=== PATIENT | male | born 1930 | race Caucasian/White ===

== ENCOUNTER 2017-08-09 09:49 | Outpatient (CLI) | payer MEDICARE, BC ==
--- NOTE | 2017-08-09 12:25 | RAD ---
THREE VIEWS RIGHT WRIST: History: Wrist pain for two months. M25.531 FINDINGS: AP, lateral, and oblique views obtained. There is joint space narrowing in the articulation of the scaphoid and trapezium. Subchondral cysts and sclerotic changes seen. There is also joint space narrowing and sclerosis in the first carpal me tacarpal joint. No evidence of acute fracture seen. No other significant bony lesions noted. IMPRESSION: Osteoarthritis, carpal and metacarpal joints. POS: ELVIN
== END 2017-08-09 09:50 | disposition home or self-care (01) ==
LOC: SCSRAD 09:49
PROVIDERS: ATTEND Family Medicine
DX: M25.531 Pain in right wrist (principal); M19.041 Primary osteoarthritis, right hand
CPT/HCPCS: 36415; 84550

== ENCOUNTER 2018-06-07 11:07 | Outpatient (CLI) | payer MEDICARE, BC ==
--- NOTE | 2018-06-07 14:04 | RAD ---
LUMBAR SPINE THREE VIEWS: History: 88-year-old male with history of spinal stenosis, chronic back pain. FINDINGS: Severe multilevel disc osteophytosis with moderate dextroscoliosis of the mid lumbar vertebral column . These changes have progressed when compared to prior exam, 02-05-08. No evidence for acute compressi on fracture. IMPRESSION: Worsening lumbar spondylosis and scoliosis. No acute fracture or focal bone lesion. POS: OFF
== END 2018-06-07 11:08 | disposition home or self-care (01) ==
LOC: SCSRAD 11:07
PROVIDERS: ATTEND Family Medicine
DX: M48.061 Spinal stenosis, lumbar region without neurogenic claudication (principal); M47.896 Other spondylosis, lumbar region; M41.9 Scoliosis, unspecified; R29.890 Loss of height
CPT/HCPCS: 72100

== ENCOUNTER 2018-06-27 07:39 | Outpatient (CLI) | payer MEDICARE, BC ==
--- NOTE | 2018-06-27 11:24 | MRI ---
MRI LUMBAR SPINE NONCONTRAST: DATE: 06-27-18 HISTORY: 88-year-old male with low back pain and bilateral lumbar radiculopathy. COMPARISON: 06-27-18 FINDINGS: For the purposes of this report, it will be assumed that there are five lumbar type vertebrae. There is severe degenerative disc disease at every level, including severe and moderate-severe disc space n arrowing at all levels. One exception is complete obliteration of disc space due to ankylosis of the endplates at L1-2. There are large diffuse disc bulge/osteophytic bar complexes at all levels. There is S-shaped lateral curvature. 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 There are flowing bridging anterior osteophytes, protruding into the prevertebral space, from T11-12 throu gh L2-3, consistent with DISH. No high grade vertebral body collapse. The S-shaped lateral curvature results in asymmetric distribution of the severe degenerative disc disease and severe degenerative fa cet disease. T11-12: No central stenosis. No high grade neural foraminal stenosis. T12-L1: No central stenosis and no neural foraminal stenosis. L1-2: Complete ankylosis of the endplates across the now obliterated disc space is a change compared to the previous MRI of 2007, when the ankylosis was partial, only on the right side. Again noted is t he prominent degenerative retrolisthesis of L1 on L2 with broad endplate osteophytic bar indenting th e ventral aspect of the thecal sac, abutting and mildly displacing the cauda equina nerve roots. The conus medullaris terminates at the lower L1 level. Despite these changes, there is no significant javid tral spinal canal stenosis. Moderate to severe right neural foraminal stenosis. Severe left neural fo raminal stenosis. Degenerative facet changes are mild to moderate. L2-3: Prominent degenerative retrolisthesis of L2 on L3. Prominent diffuse disc bulge/osteophytic bar complex indents the ventral aspect of the thecal sac. No high grade central spinal canal stenosis. P osterior epidural fat pad. Mild thecal sac stenosis. The cauda equina is clumped centrally. This is p robably due to the high grade central spinal canal stenosis at lower levels rather than chronic arach noiditis. Moderate right neural foraminal stenosis. Severe left neural foraminal stenosis. Moderate t o severe left degenerative facet changes. Mild to moderate right neural foraminal stenosis. L3-4: Degenerative retrolisthesis of L3 on L4. Diffuse disc bulge/osteophytic bar complex indents the ventral aspect of the thecal sac. Moderate to severe bilateral degenerative facet hypertrophy. Signi ficant decreased transverse diameter of the spinal canal, but not the AP dimension. Overall degree of central spinal canal stenosis is moderate. Posterior epidural fat pad results in additional stenosis of the thecal sac. Degree of thecal sac stenosis is moderate to severe, with crowding of cauda equin a. Degree of central spinal canal stenosis is similar to that of the 2008 MRI. Moderate right neural foraminal stenosis. Moderate to severe left neural foraminal stenosis. L4-5: Mild degenerative retrolisthesis of L4 on L5. The diffuse disc bulge/osteophytic bar complex is mildly larger now compared to previous study. Severe right degenerative facet changes and moderate l eft degenerative facet changes. Moderate to severe right neural foraminal stenosis. Moderate left magen ral foraminal stenosis. Mild to moderate central spinal canal stenosis. High grade right lateral rece ss stenosis. L5-S1: The degree of disc space narrowing has worsened since 2008. There is a wide central region of hyperintense T2 signal within the disc space. There is also endplate bone marrow edema. These finding s are new since the prior MRI. They probably represent extensive annular fissure and Modic type I akira nges, respectively. However, there is a thin rim hyperintense T2 signal in the prevertebral space (de monstrated on the STIR sagittal sequence), which raises the possibility of discitis/osteomyelitis. Th e endplates are not destroyed. There is very severe degenerative facet disease bilaterally, causing a grade I anterolisthesis of L5 on S1 which has slightly progressed since the previous MRI. There is s evere lateral recess stenosis bilaterally, which has worsened since 2008. The caliber of the spinal c anal has decreased since the prior study, now mild to moderate stenosis. There is severe bilateral ne ural foraminal stenosis, with chronic impingement and deformation of the exiting bilateral L5 nerve r oots, worse than before. IMPRESSION: 1. Very severe lumbar spondylosis, with multilevel severe degenerative disc disease, multilevel high grade facet osteoarthrosis (including very severe), and scoliosis. 2. Interval worsening of degenerative disc disease at L5-S1. 3. Bone marrow edema of the endplates, thin layer of soft tissue edema in the prevertebral space, and hyperintense T2 signal within the disc space, at L5-S1. Although some of this could be explained by a combination of Modic type I changes and severe annular fissures, there is a possibility that this c ould represent discitis/osteomyelitis. 4. Multilevel high grade neural foraminal stenosis. This includes chronic severe bilateral L5-S1 neur al foraminal stenosis with impingement on bilateral exiting L5 nerve roots, which have worsened since 02-04-08. 5. Ankylosis between the L1 and L2 vertebral bodies. REBA Sandoval POS: ELVIN
== END 2018-06-27 07:40 | disposition home or self-care (01) ==
LOC: TBSIIMAG 07:39
PROVIDERS: ATTEND Neurological Surgery
DX: M51.16 Intervertebral disc disorders with radiculopathy, lumbar region (principal); M51.17 Intervertebral disc disorders with radiculopathy, lumbosacral region; M47.26 Other spondylosis with radiculopathy, lumbar region; M99.83 Other biomechanical lesions of lumbar region; M41.9 Scoliosis, unspecified; R60.0 Localized edema; M48.16 Ankylosing hyperostosis [Forestier], lumbar region
CPT/HCPCS: 72148

== ENCOUNTER 2019-04-06 17:08 | Inpatient (IN) | payer MEDICARE, BC ==
[~2019-04-06 17:08] MED LIST: Dexamethasone 20 MG/5 ML VIAL ONE; Esmolol 100 MG/10 ML VIAL ONE; Glycopyrrolate 0.2 MG/ML 5 ML SYRINGE ONE; Lidocaine 1% PF 5 ML VIAL ONE; Ondansetron PF 4 MG/2 ML Vial ONE; PHENYLEPHRINE-NS 100 MCG/ML 10 ML SYRINGE ONE; PROPOFOL 200 MG/20 ML VIAL ONE; Rocuronium Bromide 10 MG/ML (10ML VIAL) ONE; Succinylcholine Chloride 20 MG/ML 10 ml SYRINGE FS ONE; ePHEDrine 50 MG/ML VIAL ONE
[2019-04-06 17:49] LABS: #Eosinphils 0.4 thou/uL (0.0-0.7); #Lymphocytes 1.2 thou/uL (1.20-3.40); #Monocytes 0.3 thou/uL (0.11-0.59); #Neutrophils 3.6 thou/uL (1.40-6.50); %Basophils 0.6 % (0.0-1.0); %Eosinophils 7.6 % (0.0-10.0); %Lymphocytes 21.7 % (21.0-51.0); %Neutrophils 64.1 % (42.0-75.0); Hemoglobin 13.2 g/dL (14.0-18.0); Mean Corpuscular HGB CONC 34.8 g/dL (32.0-36.0); Mean Corpuscular Hemoglobin 32.5 pg (27.0-31.0); Mean Corpuscular Volume 93.3 fL (78.0-98.0); Mean Platelet Volume 6.1 fL (7.4-10.4); Platelet Count 115 thou/uL (130-400); RBC Distribution Width 12.7 % (11.5-14.5); Red Blood Cell (RBC) Count 4.06 mill/uL (4.70-6.10); White Blood Cell (WBC) Count 5.6 thou/uL (4.8-10.8)
[2019-04-06 18:03] LABS: ALT (SGPT) 11 U/L (8-55); AST (SGOT) 17 U/L (5-34); Albumin 3.7 g/dL (3.4-4.8); Alkaline Phosphatase 62 U/L (40-150); Anion Gap 13 mmol/L (10-20); BUN (Urea Nitrogen) 18 mg/dL (8.4-25.7); Bilirubin, Total 0.8 mg/dL (0.2-1.2); CK (CPK) 126 U/L (30-200); Calc. Creatinine Clearance 0 mL/min (70-130); Calcium 8.7 mg/dL (7.8-10.44); Carbon Dioxide 21 mmol/L (23-31); Chloride 109 mmol/L (98-107); Estimated GFR-MDRD 59; Globulin 2.2 g/dL (2.4-3.5); Glucose 111 mg/dL (83-110); Potassium 3.7 mmol/L (3.5-5.1); Protein, Total 5.9 g/dL (5.8-8.1); Sodium 139 mmol/L (136-145)
--- NOTE | 2019-04-06 18:08 | CT ---
CT brain. HISTORY: Fall syncope. Noncontrast enhanced images of the brain obtained. There is a subacute right frontal and parietal subdural hematoma. Maximum subdural thickness on axial image #22 measures 2.4 cm. There is some mass effect and compression of the right hemisphere. Chronic left extra-axial CSF is seen. No evidence of acute fractures seen. IMPRESSION: Subacute right-sided subdural hematoma.
[2019-04-06 18:28] LABS: Bilirubin Negative (Negative); Blood, Urine Small (Negative); Clarity CLEAR (Clear); Glucose, Urine (Dipstick) Negative (Negative); Leukocyte Negative (Negative); Nitrite Negative (Negative); Protein, Urine (Dipstick) 30 mg/dL (Neg-Trace); Specific Gravity, Urine 1.018 (1.002-1.036); pH, Urine 6.5 (5.0-9.0)
[2019-04-06 18:34] LABS: Bacteria/HPF None Seen HPF (None Seen); Hyaline Casts/LPF 4-6 HYALINE CAST LPF (0-3 Hyaline); Pathc Cast-AUWi Flag 0.54 (0-2.49); Squamous Epithelial 0-3 HPF (0-3); WBC/HPF 0-3 HPF (0-3)
[2019-04-06] MEDS ORDERED: Nitroglycerin 2% Ointment 1 INCH/1 GM Packet ONE (18:37)
[2019-04-06] MEDS ORDERED: hydrALAZINE 20 MG/ML VIAL ONE ×2 (18:37→21:57)
[2019-04-06] MEDS ORDERED: Fentanyl 250 MCG/5 ML VIAL ONE (19:56)
[2019-04-06] MEDS ORDERED: levETIRAcetam 1000 MG/100 ML PREMIX BAG ONE (19:58)
[2019-04-06] MEDS ORDERED: Morphine 4 MG/ML VIAL SLOW IVP PRN (20:13)
[2019-04-06] MEDS ORDERED: Mag-Al 1200 mg/1200 mg/30 ML UDCUP PO PRN (20:13)
[2019-04-06] MEDS ORDERED: Labetalol HCl 100 MG/20 ML VIAL SLOW IVP PRN ×2 (20:13→23:15)
[2019-04-06] MEDS ORDERED: diphenhydrAMINE 50 MG CAP PO PRN (20:13)
[2019-04-06] MEDS ORDERED: Milk Of Magnesia 30 ML UDCUP PO PRN (20:13)
[2019-04-06] MEDS ORDERED: diphenhydrAMINE 50 MG/ML VIAL IVP PRN (20:13)
[2019-04-06] MEDS ORDERED: hydrALAZINE 20 MG/ML VIAL SLOW IVP PRN (20:13)
[2019-04-06] MEDS ORDERED: Morphine 2 MG/ML SYRINGE SLOW IVP PRN ×2 (20:13→23:09)
[2019-04-06] MEDS ORDERED: Docusate 100 MG CAP PO PRN (20:13)
[2019-04-06] MEDS ORDERED: levETIRAcetam In NaCl (Iso-Os) 1,000 MG in Premix Bag 1 BAG IVPB SCH (20:30)
[2019-04-06] MEDS: Sodium Chloride 0.9% 1,000 ML IV SCH (20:44)
[2019-04-06] MEDS ORDERED: Diltiazem 125 MG in Sodium Chloride 0.9% 100 ML IVPB SCH (20:45)
[2019-04-06] MEDS ORDERED: Phenylephrine HCL 10 MG/ML VIAL ONE (20:46)
[2019-04-06] MEDS ORDERED: Bupivacaine HCl 0.5%/Epinephrine 1:200,000/PF 30 ml Vial ONE (21:47)
--- NOTE | 2019-04-06 21:50 | PRG ---
DATE OF SERVICE: 04/06/2019 I personally examined the patient, interviewed him, spoke with the family, reviewed imaging and agreed with the notes of Lizzy Hawkins PA-C, dated 04/06/2019. 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 He was in good health until this afternoon when he had new onset seizure. This was witnessed by his . There was tongue biting and loss of consciousness. He has been postictal since, but returned to normal level of alertness in the hospital. He is now awake and conversant. CT examination of brain revealed subdural hematoma over the right convexity with mass effect. The blood products appear chronic to subacute. 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 His heart rate is in the 110s, blood pressures are in the 150s over 90s. Examination of eye findings reported earlier, I do not appreciate. He made some saccadic movements during the pursuit and his eye pursuit is not as smooth as this, but there is no nystagmus. There is no dysmetria on sqrjeb-qd-[id number] examination. Alternating rapid motions are a little bit slower on the left than the right. There is no neglect. There is mild pronator drift on the left. I reviewed CT imaging and the findings are described above. 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 Due to the posterior fossa findings on his original examination, I think an MRI scan is warranted. As long as there is no ischemia, I think we can continue to hold the aspirin. We talked about yaquelin hole evacuation of subdural hematoma and he would like to proceed. He is very familiar with this procedure from having performed it with Dr. Tang. Informed consent: I discussed indications, risks, benefits, alternatives and expected outcomes of the yaquelin hole evacuation of subdural hematoma. Risks I discussed included, but were not limited to, bleeding, infection, brain damage, stroke, seizure, paralysis, dependence for care, cardiopulmonary complications of anesthesia, and . He understands all the risks perfectly and wants to proceed. We will place subdural drain. We will have him lie flat overnight, preferably with the right shoulder down if he can tolerate it and repeat the CT examination in the morning. If the CT looks good, the drain can be removed and can slowly be mobilized tomorrow. I would anticipate at least 2 nights in the hospital. Job ID: [id number] MTDD
[2019-04-06] MEDS ORDERED: Sodium Chloride 0.9% 20 ML ONE (21:57)
[2019-04-06] MEDS ORDERED: Thrombin 5000 UNITS/5 ML VIAL ONE ×2 (21:58→22:39)
[2019-04-06] MEDS ORDERED: Sodium Chloride 0.9% 10 ML ONE (22:22)
[2019-04-06] MEDS ORDERED: Ondansetron PF 4 MG/2 ML Vial IVP PRN (23:09)
[2019-04-06] MEDS ORDERED: Cepastat Lozenges 1 LOZ PO PRN (23:09)
[2019-04-06] MEDS ORDERED: Promethazine 25 MG TAB PO PRN (23:09)
[2019-04-06] MEDS ORDERED: Promethazine HCl 25 MG/ML VIAL IM PRN (23:09)
[2019-04-06] MEDS ORDERED: Acetaminophen/Codeine 30-300mg Tablet PO PRN ×2 (23:12)
[2019-04-06] MEDS ORDERED: Famotidine 20 MG TAB PO SCH (23:45)
[2019-04-07 01:25] VITALS: BMI 31.6
--- NOTE | 2019-04-07 02:13 | OP ---
DATE OF PROCEDURE: 04/06/2019 SQUARING MACHINE OPERATOR: Lizzy Hawkins PA-C PREOPERATIVE INDICATION: Prevent neurological deterioration. PREOPERATIVE DIAGNOSIS: Right hemisphere subdural hematoma with seizures. POSTOPERATIVE DIAGNOSIS: Right hemisphere subdural hematoma with seizures. OPERATIVE PROCEDURE: [place] hole evacuation of right hemisphere subdural hematoma, placement of subdural drain. PREOPERATIVE MEDICATIONS: Ancef 2 g IV. DRAIN NUMBER: One. DRAIN TYPE: 10-Armenian red rubber catheter in subdural space. DESCRIPTION OF PROCEDURE: The patient was brought to the operating room. General endotracheal anesthesia was induced. Right shoulder was bumped and the head turned to the left and supported by a gel-filled donut-shaped headrest. A small amount of hair needed to be removed. We planned two incisions over the parietal bone, one behind the coronal suture and one posteriorly close to the occipital, moved close to the lambdoid suture. We also plan to drain exit point. We infused local anesthetic under these planned incisions. The scalp was sterilely prepped and draped. We opened with a 10 blade knife and controlled bleeding with bipolar and monopolar cautery. We placed self-retaining retractors and our two yaquelin hole incisions. Dissected with monopolar cautery to the periosteal layer and widened our retractors. A high-speed drill with the perforating bit was used to make a yaquelin hole anteriorly and posteriorly in the parietal bone. The posterior yaquelin hole was completed with a five diomedes bur. We waxed the edges of the yaquelin holes with bone wax. The frontal yaquelin hole needed a small amount of Gelfoam at its inferior margin to control a little bit of bony and epidural bloody egress, but that was easily controlled. We then bipolar the dura and opened each yaquelin hole in a cruciate fashion. More anterior of the two yaquelin holes led this into a subdural fluid collection that was the hemosiderin stained CSF fluid. This was irrigated anteriorly. Our posterior yaquelin hole opening led this into a separate pocket of subdural fluid. This one was dark red and looked like chronic subdural hematoma. Beneath that pocket of fluid was the same pocket we entered anteriorly and there was a membrane between them. The membrane was gently coagulated with bipolar cautery and opened as widely as we could through the yaquelin hole. Thereafter, irrigation from the posterior yaquelin hole ran out of the anterior yaquelin hole and likewise, irrigation from the anterior yaquelin hole ran out of the posterior yaquelin hole. We irrigated copiously until all the irrigant ran clear. We then cut extra side holes and red rubber catheter and placed in the subdural space through the posterior yaquelin hole. We were careful to place this into the pocket, filled with the chronic blood products rather than the hemosiderin stained CSF. This was tunneled through a separate stab incision. We tried our best to fill the subdural space with irrigant. We placed pledgets of Gelfoam over the yaquelin holes and we closed the galea over our Gel-Foam. Irrigant emanated from the distal end of the red rubber catheter into a lumbar drain bag to which we had attached it with silk sutures. We used lynne on the skin. We applied sterile dressings and sewed pursestring suture around the drain exit point. This was a clean case, no contamination. Job ID: [id number]
--- NOTE | 2019-04-07 02:35 | HP ---
HISTORY OF PRESENT ILLNESS: Mr. Edwards is an 89-year-old male who was brought to the emergency department this evening following seizure-like activity. CT head was done while in the emergency department showing a subacute subdural hemorrhage on the right side and Neurosurgery was consulted. 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 He states that he normally has regular 120 blood pressure and it is very unusual for him to be hypertensive, and when he got to the emergency department, he was 209/ 134. When I entered the hospital room, the patient is resting comfortably in his hospital bed. He is surrounded by his and his family. He states he is alert and oriented. He states that he does not remember much surrounding the incident. He remembered going to [employer] this morning and watching a movie with his , this afternoon, he started to have a supper and was eating a hot dog when he became quiet and his heard him hit the floor, he fell, and she stated that he was shaking and unresponsive for approximately 10 minutes and then had a postictal state of approximately 20 minutes. She called the EMS and the patient was slowly alert shortly after when getting to the emergency department. Mr. Edwards is moving all 4 extremities well. There are no sensory or motor deficits noticed. There is a very mild nystagmus horizontally and visibly very mild dystonia on the left upper extremity with [id number]. Pupils are equal, round, and reactive to light. GCS is 15. Cranial nerves are intact. The patient has some confusion and memory loss around the incident. However, his short and long-term memory working. His computation is working. REVIEW OF SYSTEMS: A 10-point review of systems has been completed and is negative other than stated in the above HPI. ALLERGIES: NO KNOWN DRUG ALLERGIES. MEDICATIONS: Flomax. PAST MEDICAL HISTORY: Urinary, benign prostate hyperplasia. 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 SOCIAL HISTORY: The patient drinks socially. Denies drug use. No tobacco use. Lives at home with his family. He is a retired physician. They have lived in town for approximately 50+ years. PHYSICAL EXAMINATION: VITAL SIGNS: Blood pressure 193/125, heart rate 92, respirations 18, temperature 98.2, pain 3, O2 stats are 98% on room air. CONSTITUTIONAL: The patient is alert and oriented, does not appear to be in any visible distress. He is hypertensive, afebrile, nontoxic. HEENT: Head is normocephalic and atraumatic. Pupils are equal, round, and reactive to light. Extraocular movements are intact. Hearing is intact. Moist mucous membranes. RESPIRATORY: Normal work of breathing on room air. Symmetric chest rise. EXTREMITIES: The patient is moving all 4 extremities with normal range of motion. Normal strength, 5/5 bilateral river crossing supervisor strength, deltoids, biceps, triceps, hip flexion, knee flexion, hip extension, knee extension, dorsiflexion, and plantar flexion. He has pitting edema 1+ bilaterally in both lower extremities and discoloration to both lower extremities. NEUROLOGIC: The patient is alert and oriented. Cranial nerves II through XII are intact. There are no sensory or motor deficits noted. There is a very mild nystagmus horizontally and mild dysmetria on the left compared to right upper extremity with [id number] test. Short-term memory, he has some amnesia surrounding the seizure. Long-term memory is intact. Computation is intact. Speech is spontaneous and fluent. IMAGING DATA: CT of the brain shows subacute right frontal and parietal subdural hematoma. The maximum subdural thickness measures approximately 2.4 cm. There is some mass effect and compression of the right hemisphere and chronic left extra-axial CSF is seen. ASSESSMENT AND PLAN: Mr. Edwards is an 89-year-old male with subacute right-sided subdural hematoma. We are going to admit the patient to the hospital. We are recommending yaquelin hole evacuation and drainage of the subdural. In addition to obtaining an MRI of the brain to assess for possible cerebellar dysfunction seen on exam. We will maintain blood pressure below 130. Get neuro checks throughout the night. Start loading dose of Keppra and continue. Job ID: [id number] MTDD
[2019-04-07] MEDS ORDERED: niCARdipine HCl 25 MG in Sodium Chloride 0.9% 250 ML 240 ML IVPB SCH (03:00)
[2019-04-07] MEDS: CEFAZOLIN 2 GM in Premix Bag 1 BAG IVPB SCH ×4 (03:39→23:51)
--- NOTE | 2019-04-07 07:15 | CT ---
CT OF HEAD NONCONTRAST: COMPARISON: 04/06/2019. INDICATION: Subdural hemorrhage, followup. FINDINGS: There has been interval performance of right side subdural drain placement with evacuation of content s of the previously described right subdural hematoma. There has been interval reduced volume of sub dural hematoma. Residual subdural fluid collection and air do remain, with a maximum thickness of 1. 5 cm. There is slight effacement of the right cerebral sulci. No significant shift of midline. David ssly stable volume with mild CSF density overlying the left convexity with interspersed pneumocephalu s is present. There is no new parenchymal hemorrhage. Ventricular system is within normal limits of size. Interval performance of yaquelin hole of the anterior and posterior right parietal bone. IMPRESSION: Interval placement of right parietal approach subdural drain terminating within the anterior right paez bdural space with interval decrease in volume of right-sided subdural hematoma. POS: [place]
[2019-04-07] MEDS: Sodium Chloride 0.9% 1,000 ML IV SCH ×2 (07:47→23:51)
--- NOTE | 2019-04-07 08:07 | PRG ---
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 A followup CT scan was done today and looks much better. There is a small amount of acute blood under the frontal yaquelin hole, which may be from the scalp. This causes no mass effect at all. All the chronic blood products have been evacuated through the drain. 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 His blood pressure is 130/87. I do not find any neurological deficits. There is no pronator drift today. 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 I am going to leave the drain in for another day and let it collect even more fluid out of the subdural space. We will remove the drain tomorrow. When he is sleeping, I prefer the right shoulder down in the right lateral decubitus position and the head of bed flat. He understands. Job ID: [id number]
[2019-04-07] MEDS: Tamsulosin HCl 0.4 MG CAP PO SCH (08:30)
--- NOTE | 2019-04-07 11:11 | MRI ---
PRELIMINARY REPORT/[facility]/EMERGENCY AFTER HOURS PROCEDURE: EXAM: MR Head Without Contrast EXAM DATE/TIME: 04/07/2019 12:43 AM CLINICAL HISTORY: 89 years old, male; Injury or trauma and signs and symptoms; Follow-up exam; Blunt trauma (contusions or hematomas); Consciousness not specified; Altered mental status/memory loss and syncope and collap se; Confusion or disorientation; Injury date: 04/06/19; Prior surgery; Surgery date: Post-operative (0-2 days); Surgery type: Drainage for subdural; Patient HX: R/O stroke. S/P surgery f or sdh. H/x syncope fall out of chair hitting head yesterday. TECHNIQUE: Imaging protocol: MR of the head without contrast. COMPARISON: No relevant prior studies available. FINDINGS: Brain: There is parenchymal atrophy. Right posterior parietal approach drainage catheter within the r ight parietal extra-axial space. Scattered pneumocephalus, with the majority of the gas in the right frontal subdural space. Small right posterior parietal subdural collection, which is T2 hyperintense and FLAIR isointense, likely subdural hygroma. T2/flair hyperintense signal within the periventricula r and subcortical white matter bilaterally, compatible with chronic small vessel ischemic change, myelination, or gliosis. No mass, hemorrhage, or acute infarction. Ventricles: Normal. No ventriculomegaly. Bones/joints: Unremarkable. Soft tissues: Normal. Sinuses: Normal as visualized. No acute sinusitis. Mastoid air cells: Normal as visualized. No mastoid effusion. Orbits: Unremarkable. IMPRESSION: 1. No acute intracranial abnormality. 2. Postoperative changes as described above. Thank you for allowing us to participate in the care of your patient. Dictated and Authenticated by: Isrrael Powers MD 04/07/2019 1:55 AM Central Time ([place] & [place]) FINAL REPORT MRI BRAIN WITHOUT CONTRAST: I agree with the preliminary report given by Dr. Isrrael Powers of [facility]. POS: [facility]
[2019-04-07] MEDS: Acetaminophen 325 MG TAB PO PRN (16:04)
[2019-04-07] MEDS ORDERED: Famotidine 20 MG TAB PO SCH (21:00)
[2019-04-08] MEDS: Acetaminophen 325 MG TAB PO PRN ×2 (04:00→08:55)
--- NOTE | 2019-04-08 07:47 | PRG ---
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 His drain has already been removed and the catheter is out. He was ambulatory yesterday and feels safe. He can be discharged today. A followup CT scan will be made, 2 weeks. He will avoid blood thinners between now and then. Job ID: [id number]
[2019-04-08] MEDS: CEFAZOLIN 2 GM in Premix Bag 1 BAG IVPB SCH (08:40)
[2019-04-08] MEDS: Tamsulosin HCl 0.4 MG CAP PO SCH (08:41)
[2019-04-08] MEDS ORDERED: levETIRAcetam 500 MG TAB PO SCH (09:00)
[2019-04-08] MEDS: hydrALAZINE 20 MG/ML VIAL SLOW IVP PRN ×2 (11:48→12:24)
[2019-04-08 12:08] VITALS: TEMP 98.2
[2019-04-08] MEDS: Sodium Chloride 0.9% 1,000 ML IV SCH (12:17)
[2019-04-08 12:25] VITALS: BP 156/96
== END 2019-04-08 14:30 | disposition home or self-care (01) | DRG 25 ==
LOC: ERS 17:08 → 2SE 18:30 → CCU 23:22 → SURG A 04-07 10:03
PROVIDERS: ADMIT Neurological Surgery; ATTEND Neurological Surgery
PROC: 0WC Anatomical Regions, General, Extirpation (ICD-10-PCS; principal; 2019-04-06)
DX: I62.02 Nontraumatic subacute subdural hemorrhage (principal); G93.5 Compression of brain; N40.0 Benign prostatic hyperplasia without lower urinary tract symptoms; W07.XXXA Fall from chair, initial encounter; Y92.019 Unspecified place in single-family (private) house as the place of occurrence of the external cause; Z79.899 Other long term (current) drug therapy
CPT/HCPCS: 36415; 70450; 70551; 80053; 81003; 81015; 82550; 84146; 84484; 85025; 93005; 96374; J0360; J0670; J0690; J1100; J1953; J2001; J2370; J2405; J2704; J3010; J3490; J7050

== ENCOUNTER 2019-05-06 09:25 | Outpatient (CLI) | payer MEDICARE, BC ==
[~2019-05-06 09:25] MED LIST changes: -Dexamethasone 20 MG/5 ML VIAL ONE; -Esmolol 100 MG/10 ML VIAL ONE; -Glycopyrrolate 0.2 MG/ML 5 ML SYRINGE ONE; +Iopamidol 300 61% 100 ML VIAL FS ONE; -Lidocaine 1% PF 5 ML VIAL ONE; -Ondansetron PF 4 MG/2 ML Vial ONE; -PHENYLEPHRINE-NS 100 MCG/ML 10 ML SYRINGE ONE; -PROPOFOL 200 MG/20 ML VIAL ONE; -Rocuronium Bromide 10 MG/ML (10ML VIAL) ONE; -Succinylcholine Chloride 20 MG/ML 10 ml SYRINGE FS ONE; -ePHEDrine 50 MG/ML VIAL ONE
--- NOTE | 2019-05-06 13:09 | CT ---
CT BRAIN WITH AND WITHOUT CONTRAST: DATE: 05/06/2019 HISTORY: 89-year-old male follow-up subdural hematoma TECHNIQUE: Precontrast scan of the brain. IV injection of iodinated contrast media. Postcontrast scan of brain. COMPARISON: 04/07/2019 FINDINGS: Again noted are the 2 right yaquelin holes. The right subdural drainage catheter has been removed. The pn eumocephalus has resolved. There is currently a mixed, intermediate density right upper supratentorial hematoma that does not exert significant mass effect upon the upper portion of the rig ht cerebral hemisphere. Measured at the same level, the transverse diameter in the posterior upper cerebrum was previously approximately 16 mm, but is currently approximately 10 mm. The extra-axial sp aces are bilaterally diffusely enlarged on an ex vacuo basis. No acute intra-axial hemorrhage. No obstructive hydrocephalus. No mass effect or midline shift. No abnormal intracranial enhancement. Par anasal sinuses and tympanomastoid cavities are bilaterally grossly clear. IMPRESSION: 1) interval removal of right subdural drainage catheter. 2) although the volume of right subdural fluid collection has decreased, there is new right subdural subacute hemorrhage. 3) interval resolution of the pneumocephalus. 4) no mass effect
--- NOTE | 2019-05-06 13:17 | CT ---
CT lumbar spine without contrast: HISTORY: Low back pain with numbness in right leg after a fall. COMPARISON: No prior CT exams of the lumbar spine available FINDINGS: There is partial visualization of a tiny right pleural effusion. Vascular calcifications are seen in the abdominal aorta and iliac arteries. Right renal parapelvic cyst is present which was seen on CT abdomen 12/04/2018. The vertebral body heights are within normal limits. There is fusion of the L1 and L2 vertebral deborah s. Grade 1 anterolisthesis of L5 on S1 is noted measuring approximately 8 mm. No fracture is seen. A large left anterolateral osteophyte is seen at the L2-3 level with bridging osteophytes involving t he lower thoracic and upper lumbar spine. L1-2: There is posterior osteophyte formation at this level with facet degenerative changes as well. There is generalized mild narrowing of the central spinal canal. There is [id number] right and moderate left-sided neural foraminal narrowing. L2-3: There is loss of intervertebral disc height with vacuum phenomenon seen in the intervertebral d isc. Endplate degenerative changes are present. There is trace retrolisthesis of L2 on L3. A disc osteophyte complex is present resulting in mild narrowing of the central spinal canal with narrowing of the subarticular zone on the left due to posterior osteophyte formation. There is mild right and moderate left-sided neural foraminal narrowing. L3-4: There is loss of intervertebral disc height with vacuum phenomenon present. Mild endplate degen erative changes are seen. There is a broad-based disc osteophyte complex and moderate to severe facet hypertrophic changes and ligamentous thickening. There is moderate to severe narrowing of the c entral spinal canal as well as prominent narrowing of the lateral recesses bilaterally greater on the right. Moderate right and moderate to severe left-sided neural foraminal narrowing are present. L4-5: There is loss of vertebral disc height with evidence of vacuum phenomenon. Broad-based disc ost eophyte complex is present, and there is severe right-sided facet hypertrophic changes with mild left facet degenerative changes. There is moderate narrowing of the central spinal canal with narrowi ng of the lateral recesses greater on the right. There is severe right and mild to moderate left-sided neural foraminal narrowing. L5-S1: There is prominent endplate degenerative changes with vacuum phenomenon seen. There is mild lo ss of intervertebral disc height. Grade 1 anterolisthesis of L5 on S1 is present with severe facet hypertrophic changes noted bilaterally. There is only minimal narrowing of the central spinal canal a t this level. Severe bilateral neural foraminal narrowing is present. There is mild right convex scoliosis of the lumbar spine. IMPRESSION: 1. Multilevel degenerative changes seen throughout the lumbar spine with varying degrees of moderate and moderate to severe degrees of neural foraminal narrowing. 2. Grade 1 anterolisthesis of L5 on S1 related to facet degenerative changes. 3. Tiny right pleural effusion. 4. Right parapelvic renal cyst.
== END 2019-05-06 09:26 | disposition home or self-care (01) ==
LOC: SCSCT 09:25
PROVIDERS: ATTEND Neurological Surgery
DX: S06.5X0D Traumatic subdural hemorrhage without loss of consciousness, subsequent encounter (principal); M48.061 Spinal stenosis, lumbar region without neurogenic claudication; M47.816 Spondylosis without myelopathy or radiculopathy, lumbar region; M43.17 Spondylolisthesis, lumbosacral region; J90 Pleural effusion, not elsewhere classified; N28.1 Cyst of kidney, acquired; G93.89 Other specified disorders of brain
CPT/HCPCS: 70470; 72131; 82565; Q9967

== ENCOUNTER 2019-05-07 15:34 | Outpatient (CLI) | payer MEDICARE, BC ==
--- NOTE | 2019-05-07 15:49 | RAD ---
RIGHT KNEE 4 VIEWS: HISTORY: Right knee pain, fall. FINDINGS/IMPRESSION: Degenerative changes are present. No fracture or dislocation is identified. POS: [facility]
== END 2019-05-07 15:35 | disposition home or self-care (01) ==
LOC: SCSRAD 15:34
PROVIDERS: ATTEND Family Medicine
DX: M25.561 Pain in right knee (principal); M17.11 Unilateral primary osteoarthritis, right knee

== ENCOUNTER 2019-06-23 09:15 | Outpatient (CLI) | payer MEDICARE, BC ==
--- NOTE | 2019-06-23 11:00 | CT ---
Exam: Head CT without contrast HISTORY: Status post subdural hematoma. COMPARISON: 04/07/2019 FINDINGS: Hemorrhage: No acute intraparenchymal hemorrhage or extra-axial hematoma. Minimal hypoattenuation cara ng the right parietal convex city measures 0.5 cm and may represent residual chronic subdural blood versus dural thickening. Subdural hygroma along the left extra-axial space is noted. Brain parenchyma: Cortical messina-white matter differentiation is preserved. No mass effect or midline shift. Basilar cisterns are patent. Ventricular system: Ventricles and sulci are patent and symmetric. Calvarium: No fracture. Prakash hole defects are identified. Sinuses and mastoid air cells: Adequate aeration. IMPRESSION: 1. No acute intraparenchymal hemorrhage 2. Interval decrease in size of previously noted extra-axial blood. Residual hypoattenuation along th e right parietal convexity may represent chronic hemorrhage versus subdural thickening. 3. Hypoattenuation along the left extra-axial space likely representing a subdural hygroma.
== END 2019-06-23 09:16 | disposition home or self-care (01) ==
LOC: SCSCT 09:15
PROVIDERS: ATTEND Neurological Surgery
DX: I62.03 Nontraumatic chronic subdural hemorrhage (principal)
CPT/HCPCS: 70450

== ENCOUNTER 2019-09-22 11:15 | Inpatient (IN) | payer MEDICARE, BC ==
[~2019-09-22 11:15] MED LIST changes: -Iopamidol 300 61% 100 ML VIAL FS ONE; +Magnevist 469MG/ML 20 ML VIAL ONE
--- NOTE | 2019-09-22 13:13 | RAD ---
Exam: Chest one view HISTORY:Weakness Comparison: None FINDINGS: Cardiac silhouette:Cardiomegaly Aorta: Ectatic. Pulmonary vessels: Normal Costophrenic angles: Clear LUNGS: Linear density in the lung bases may represent subsegmental atelectasis or scar. Pneumothorax: None Osseous abnormalities: None Possible small hiatal hernia. 2 view chest radiograph would be beneficial. IMPRESSION: 1. No acute cardiopulmonary process. 2. Possible small hiatal hernia. 2 view chest radiograph would be beneficial.
[2019-09-22 13:20] LABS: ALT (SGPT) 19 U/L (8-55); AST (SGOT) 23 U/L (5-34); Albumin 4.2 g/dL (3.4-4.8); Alkaline Phosphatase 71 U/L (40-110); Anion Gap 10 mmol/L (10-20); BUN (Urea Nitrogen) 18 mg/dL (8.4-25.7); Bilirubin, Total 0.7 mg/dL (0.2-1.2); Calc. Creatinine Clearance 0 mL/min (70-130); Calcium 9.4 mg/dL (7.8-10.44); Carbon Dioxide 28 mmol/L (23-31); Chloride 109 mmol/L (98-107); Estimated GFR-MDRD 70; Globulin 2.5 g/dL (2.4-3.5); Glucose 85 mg/dL (83-110); Potassium 4.1 mmol/L (3.5-5.1); Protein, Total 6.7 g/dL (5.8-8.1); Sodium 143 mmol/L (136-145)
[2019-09-22 13:25] LABS: #Eosinphils 0.3 thou/uL (0.0-0.7); #Lymphocytes 1.3 thou/uL (1.20-3.40); #Monocytes 0.6 thou/uL (0.11-0.59); #Neutrophils 4.2 thou/uL (1.40-6.50); %Basophils 0.8 % (0.0-1.0); %Eosinophils 4.7 % (0.0-10.0); %Lymphocytes 20.6 % (21.0-51.0); %Monocytes 8.9 % (0.0-10.0); Hemoglobin 13.7 g/dL (14.0-18.0); Mean Corpuscular HGB CONC 34.5 g/dL (32.0-36.0); Mean Corpuscular Volume 95.4 fL (78.0-98.0); RBC Distribution Width 12.8 % (11.5-14.5); Red Blood Cell (RBC) Count 4.16 mill/uL (4.70-6.10); White Blood Cell (WBC) Count 6.4 thou/uL (4.8-10.8)
[2019-09-22 13:27] LABS: Mean Platelet Volume 6.6 fL (7.4-10.4); Platelet Count 112 thou/uL (130-400); Platelet Morphology Comment Appears Decreased
[2019-09-22] MEDS ORDERED: Morphine 2 MG/ML SYRINGE ONE (13:59)
--- NOTE | 2019-09-22 16:19 | MRI ---
MRI LUMBAR SPINE WITH AND WITHOUT CONTRAST: DATE: 09/22/2019 HISTORY: 89-year-old male with chronic low back pain presents with worsening of low back pain acutely today, s ubtle loss of right lower extremity strength, resulting in fall. Dr. Montalvo discussed the infectious spondylitis by telephone with ER physician Dr. Crocker at 5:21 PM on p artial today. COMPARISON: 06/27/2018 TECHNIQUE: Multiple sequences obtained in axial and sagittal planes, pre and post IV injection of gadolinium-bas ed contrast agent. FINDINGS: For the purposes of this report, it will be assumed that there are 5 lumbar-type vertebrae. Vertebral body heights are maintained. Severe degenerative disc disease at all levels, as previously described. Ankylosis across obliterated L1-2 disc space. S-shaped lateral curvature. Degenerative retrolisthesis of L1 on L2, L2 on L3. 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 Grade 1 anterolisthesis of L5 on S1. High-g rade facet DJD throughout mid and lower levels, worst at L5-S1 bilaterally, causing the spondylolisthesis. T12-L1:No high-grade central or high-grade neural foraminal stenosis. L1-2:Conus medullaris terminates at this level. No high-grade central stenosis. Bilateral moderate to severe neural foraminal stenosis, right greater than left. L2-3:Moderate right neural foraminal stenosis. Severe left neural foraminal stenosis. Moderate centra l spinal canal stenosis. L3-4:Moderate central spinal canal stenosis. Posterior epidural fat pad. Severe thecal sac stenosis w ith obliteration of CSF signal. Moderate to severe bilateral neural foraminal stenosis. L4-5:Anterior and posterior epidural lipomatosis. Enhancing circumferential epidural granulation tiss ue. (This is also present to a lesser degree at multiple levels superior to this). Moderate central spinal canal stenosis. Severe thecal sac stenosis. Moderately severe right neural foraminal stenosis. Moderate left neural foraminal stenosis. L5-S1:Extensive abnormal T2 hyperintense fluid signal intensity throughout the disc space heterogeneo usly has worsened. Patchy abnormal enhancement of the disc space. Severe bone marrow edema has now worsened to involve almost the entire L5 and entire S1 vertebral bodies, associated with strong abnor mal marrow enhancement. Enhancing granulation tissue/edema in the prevertebral space broadly. The very severe bilateral facet DJD causes grade 1 anterolisthesis of L5 on S1. Severe bilateral neural f oraminal stenosis with chronic compression of exiting bilateral L5 nerve roots. Superimposed on this, there is enhancing granulation tissue in the bilateral neural foramina surrounding the L5 nerve roots. Severe central spinal canal stenosis and very severe lateral recess stenosis bilaterally. Circumferential enhancing epidural granulation tissue. No definite epidural abscess identified. 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 2) epidural granulation tissue, most prominently at L5-S1, L4-5, and progressively lesser degrees at higher levels up to upper L3 level. 3) severe lumbar spondylosis with multilevel severe degenerative disc disease, severe facet osteoarth rosis, and multilevel high-grade central and neural foraminal stenosis, including severe. 4) grade 1 spondylolisthesis at L5-S1 due to extremely severe bilateral facet osteoarthrosis. 5) severe bilateral neural foraminal stenosis at L5-S1 with chronic compression of the exiting bilate ral L5 nerve roots is exacerbated by enhancing granulomatous tissue in the neural foramina..
[2019-09-22] MEDS ORDERED: Vancomycin HCl 1 GM in Premix Bag 1 BAG IVPB SCH ×2 (18:00→21:30)
[2019-09-22] MEDS ORDERED: Cefepime 2 GM VIAL ONE (18:17)
[2019-09-22 19:18] LABS: Lactic Acid 1.1 mmol/L (0.5-2.2)
[2019-09-22 20:15] VITALS: BMI 33.2
[2019-09-22] MEDS ORDERED: hydrALAZINE 20 MG/ML VIAL SLOW IVP PRN (20:35)
[2019-09-22] MEDS ORDERED: Sodium Chloride 0.9% 1,000 ML IV SCH (23:15)
--- NOTE | 2019-09-23 01:50 | HP ---
CHIEF COMPLAINT: Back pain and right leg weakness. 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 In fact, the patient reports he has lost a total of about 7 to 7-1/2 inches of overall height over the years. He says today he was getting up to get some breakfast and had pain in his back, and his right leg completely gave out when he went to the ground, although he did not have a fall injury. Reports in the past he was typically taking ibuprofen, but in March, he had a subdural hematoma, requiring a yaquelin hole and evacuation with Dr. Pittman and subsequent to that he has only been taking Tylenol. He presented to the emergency department today, where he received a lumbar MRI revealing potential osteomyelitis and therefore is admitted for further evaluation. REVIEW OF SYSTEMS: He denies any fevers or chills. He does occasionally have some urge incontinence and he says he has lost about 25 pounds, but that has been on purpose because he was trying to be kinder to his back. All other systems reviewed. All pertinent positives and negatives noted in the HPI. PAST MEDICAL HISTORY: Notable for BPH and kidney stones. 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 FAMILY HISTORY: His father had an aortic valve replacement at the age of 92 and of an aneurysm at 95. His mother at 93. He has a brother 3 years younger than him who had a recent diagnosis of a basal cell carcinoma of the face requiring extensive surgery and that is the only cancer history in the family. SOCIAL HISTORY: No tobacco. Has 1 to 2 drinks per week. No drugs. He is . He is full code. His is his surrogate decision maker. ALLERGIES: NONE. MEDICATIONS: 1. Flomax 0.4 mg p.o. daily. 2. Alphagan eyedrops 0.1% one drop each eye b.i.d. 3. Azopt 1% one drop right eye b.i.d. PHYSICAL EXAMINATION: VITAL SIGNS: Initially, BP 168/104, most recent 161/109, pulse 83, respirations 18, temperature is 98.4, O2 saturation 97% on room air. GENERAL APPEARANCE: Age-appropriate male, in no distress. He is awake and alert, very pleasant, cooperative. HEENT: PERRL. No OP lesions. NECK: Supple and symmetric. HEART: Regular with a 2/6 murmur heard at the aortic and mitral distributions, systolic in nature. LUNGS: Clear bilaterally with no wheezes or rales. ABDOMEN: Soft, nontender, and nondistended. Positive bowel sounds. No masses. No organomegaly. EXTREMITIES: No cyanosis, clubbing, or edema. He has 5/5 strength in both lower extremities. NEUROLOGIC: The patient is moving all extremities appropriately. Cranial nerves intact. Has no focal deficits. PSYCHIATRIC: Normal affect and behavior. MUSCULOSKELETAL: Lumbar spine has no evidence of any skin lesions or decubiti. There is no tenderness to palpation over the lumbar spine. LABORATORY DATA: White count 6.4, hemoglobin 13.7, platelets 112. Sodium 143, potassium 4.1, chloride 109, CO2 28, BUN 18, creatinine 1.0, glucose 85, lactic acid 1.1, calcium 9.4, AST 23, ALT 19. Troponin 0.011. Chest x-ray, possible small hiatal hernia. No acute abnormalities. MRI of the lumbar spine shows evidence for infectious spondylitis: Osteomyelitis-diskitis at L5-S1. There is epidural granulation tissue, most prominently at L5-S1 and L4-L5, and progressively lesser degrees at higher levels up to upper L3 level, there is severe lumbar spondylosis with multilevel severe degenerative disk disease, severe facet osteoarthrosis and multilevel high-grade central and neuroforaminal stenosis including severe grade 1 spondylolisthesis at L5-S1 due to extremely severe bilateral facet osteoarthrosis, bilateral neuroforaminal stenosis at L5-S1 with chronic compression of the exiting L5 nerve roots exacerbated by enhancing granulomatous tissue in the neural foramina. IMPRESSION AND PLAN: 1. Possible osteomyelitis of L5-S1 with diskitis based on MRI. The patient does not appear to have any significant pain in that area, nor does he have other potential source of seeding this area. He does report having had a urinary tract infection following his admission in February or in March rather when he had a Mcpherson catheter. Micro results from April would suggest that was a Pseudomonas infection. Currently, he is on vancomycin and cefepime. We will continue those. Consult Neurosurgery and consult ID. 2. Elevated blood pressure. The patient has no history of significant blood pressure. He denies any headache, blurred vision, chest pain, or shortness of breath. We will provide p.r.n. He believes it might have been related to the pain, although appears to have persisted now for a period of time. 3. Benign prostatic hyperplasia. We will continue with his tamsulosin. 4. Glaucoma. We will continue with his usual home regimen of eye drops. 5. Pain control. The patient reports that Tylenol has typically worked just fine for him and that is what he is content with using for the time being. Job ID: [id number]
[2019-09-23] MEDS: Cefepime 2 GM in Sodium Chloride 0.9% 100 ML IVPB SCH ×2 (05:30→19:16)
[2019-09-23] MEDS: Acetaminophen 325 MG TAB PO PRN ×3 (05:43→20:15)
[2019-09-23 06:08] LABS: Bacteria/HPF None Seen HPF (None Seen); Bilirubin Negative (Negative); Blood, Urine Trace (Negative); Clarity Clear (Clear); Glucose, Urine (Dipstick) Normal (Negative); Leukocyte Negative Leu/uL (Negative); Nitrite Negative (Negative); Protein, Urine (Dipstick) Negative (Neg-Trace); Squamous Epithelial None Seen HPF (0-3); Urobilinogen Normal mg/dL (Less than 2); WBC/HPF 0-3 HPF (0-3)
[2019-09-23] MEDS: Gabapentin 100 MG CAP PO SCH ×3 (09:09→20:15)
[2019-09-23 13:45] LABS: PTT 31.6 SEC (22.9-36.1)
[2019-09-23 13:46] LABS: INR-International Normal Ratio 1.2
--- NOTE | 2019-09-23 14:07 | CON ---
DATE OF CONSULTATION: 09/23/2019 REASON FOR CONSULTATION: Lumbar spine infection. HISTORY OF PRESENT ILLNESS: An 89-year-old gentleman. 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 He had a subdural a while ago that was drained by Dr. Pittman, and otherwise, he is functionally doing quite well, but has developed pain which has been worsening for the past month in the lower back and had an MRI which is discussed below. He is admitted for treatment. He has had some paresthesias in the right foot. Otherwise, denies headaches. No documented fever or chills. No respiratory symptoms or abdominal pain. He is voiding with a little bit of difficulty due to his BPH. No gastrointestinal symptoms. No joint symptoms outside the ordinary osteoarthrosis. No skin disorder. PAST MEDICAL HISTORY: Includes BPH, spinal stenosis, and cranial subdural hematoma treated with a yaquelin hole as usual procedure by Dr. Pittman. 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 Elam and is still functioning well the repair. Other than that, tonsillectomy, but no other major surgeries. SOCIAL HISTORY: He lives in [place]. Drinks occasionally. Never smoked in his life. 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 ALLERGIES: NO ALLERGIES NOTED. MEDICATIONS: He takes Flomax. He is currently on cefepime and vancomycin. PHYSICAL EXAMINATION: VITAL SIGNS: Essentially normal except for mild elevation of systolic blood pressure. O2 saturations 96%. GENERAL: Awake, alert, oriented, and pleasant. SKIN: No major skin disorder noted. Peripheral IV access. No Watson catheter. LYMPHATICS: No lymphadenopathy. HEENT: Ocular movements are conjugate. Oral cavity with quite a few teeth in place. NECK: Supple. No jugular venous distention or carotid bruits. LUNGS: Symmetric. Clear breath sounds. HEART: S1 and S2. Regular rate. No S3 or S4. ABDOMEN: Soft. Not distended or tender. No ascites. : No bladder distention. MUSCULOSKELETAL: No joint inflammatory activity. No edema. Pulses are 1+ in dorsalis pedis. Strength in upper and lower extremities is 5/5. NEUROLOGIC: Cognitive function is perfectly intact. LABORATORY DATA: White cell count 6.4, hemoglobin 13.7, platelets 112,000, 65% neutrophils. Chemistry was normal except for chloride 109. Lactic acid 1.1. CRP was not done. Urinalysis with 0 to 3 wbc's. Two sets of blood cultures are pending at this time. The previous platelet counts have been abnormal in the past. I do not see any imaging study of his liver on file. The lumbar spine MRI shows infectious spondylitis, osteomyelitis, and diskitis at L5-S1 with epidural granulation tissue most prominent at L5-S1 and L4-L5, progressively lesser degrees to higher levels up to the L3 level. This is a new finding compared with the lumbar spine MRI that was done in June 2018, although he did have some early findings that could suggest diskitis and osteomyelitis in 2018, as well. He did have a positive urine culture in April 2019, with P. aeruginosa. ASSESSMENT: Benign prostatic hypertrophy, recent admission for yaquelin hole procedure to manage the subdural hematoma. During that visit, he had urinary infection by Pseudomonas aeruginosa associated with watson cath. He has not had symptoms since. Now, he presents with worsening back pain. He did have some abnormalities on MRI of the lumbosacral spine last year , but those were early on and not clearly related to infection, but now he has overt diskitis and early osteomyelitis with epidural granulation tissue in the lower segments of the lumbar spine. I discussed with the radiologist that an aspirate/biopsy procedure is not possible due to the location of the abnormality. Therefore, we will have to treat this empirically unless something grows in the cultures, which I do not expect. The plan is to administer cefepime and vancomycin for 6 weeks approximately. Follow up MRIs down the road, and we will submit C-reactive protein and order PICC line placement. Job ID: [id number] MTDD
--- NOTE | 2019-09-23 15:52 | PDOC.HOSPP ---
- Subjective Encounter Date: 09/23/19 Encounter Time: 16:00 Subjective: Patient states his left leg gave out while walking the other day and he fell on his left side. The patient states his back pain is well controlled with tylenol. He has some tingling in his leg but no bowel or bladder incontinence. Plan for PICC tomorrow - Objective Vital Signs & Weight: Vital Signs (12 hours) Temp Pulse Resp BP Pulse Ox 09/23/19 12:00 98.6 F 79 18 154/86 H 96 09/23/19 07:47 98.5 F 85 83 H 124/85 95 09/23/19 07:30 95 Weight Weight 187 lb 9.6 oz I&O: 09/22/19 09/23/19 09/24/19 06:59 06:59 06:59 Intake Total 1100 Output Total 1200 Balance -100 Result Diagrams: 09/22/19 12:36 09/22/19 12:36 Hospitalist ROS - Review of Systems Constitutional: denies: fever, chills Eyes: denies: vision change ENT: denies: ear discharge Respiratory: denies: dry, pleuritic pain Cardiovascular: denies: chest pain Gastrointestinal: denies: vomiting Genitourinary: denies: dysuria, frequency, incontinence Musculoskeletal: denies: shoulder pain Skin: denies: rash, lesions Neurological: denies: weakness, numbness - Medication Medications: Active Medications Generic Name Dose Route Start Last Admin Trade Name Freq PRN Reason Stop Dose Admin Acetaminophen 650 mg 09/22/19 20:28 09/23/19 14:24 Tylenol PO 650 mg Q4H PRN Administration Headache/Fever/Mild Pain (1-3) Gabapentin 200 mg 09/23/19 09:00 09/23/19 14:25 Neurontin PO 200 mg TID ADY Administration Hydralazine HCl 10 mg 09/22/19 20:35 09/23/19 03:43 Apresoline SLOW IVP 10 mg Q4H PRN Administration SBP > 185, DBP > 100 Cefepime HCl 2 gm/ Sodium 100 mls @ 200 mls/hr 09/23/19 06:00 09/23/19 05:30 Chloride IVPB 100 mls 0600,1800 ADY Administration - Exam General Appearance: NAD, awake alert Eye: PERRL, anicteric sclera ENT: normocephalic atraumatic, no oropharyngeal lesions Neck: supple, no JVD Heart: RRR, no murmur, no gallops, no rubs Respiratory: CTAB, no wheezes, no rales, no ronchi Gastrointestinal: soft, non-tender, non-distended, normal bowel sounds Extremities: no cyanosis, no clubbing, no edema Skin: normal turgor, no lesions, no rashes Neurological: cranial nerve grossly intact, normal sensation to touch, no focal deficits, no new deficit Neurological - other findings: Neg Babinski sign, 1+ patellar reflexes. 4/5 dorsiflexion on L, 5/5 right Musculoskeletal: normal tone, normal strength, no muscle wasting Psychiatric: normal affect, normal behavior, A&O x 3, oriented to person Hosp A/P - Plan ChestX ray: no acute disease. Small hiatal hernia MRI L spine: osteomyelitis-discitis at L5-S1. Epidural granulation tissue most prominently at L5-S1, L4-5, and lesser degrees at highre levels up to upper L3 level. Severe lumbar spondylosis with multilevel severe degenerative disc disease, severe facet arthrosis, multilevel highgrade central and neural foraminal stenosis. Grade 1 spondylolisthesis at L5-S1 due to extremely severe bilateral facet arthrosis. Severe bilateral stenosis at L5-S1 with chronic compression of the exiting bilateral L5 nerve roots exacerbated by enhancing granulomatous tissue in the neural foramina This is an 89 year old male with past medical history of glaucoma, subdural hematoma in the past, BPH who presented with severe back pain after a fall, found to have osteomyelitis L5-S1 osteomyelitis - noted on MRi L spine above. Blood cultures negative, on vanc and cefepime for 6 weeks per infectious disease. Plan for PICC line tomorrow - PT consult Macrocytic anemia - noted on admission. Recheck CBC tomorrow, B12 and folate Glaucoma- continue eye drops BPH - continue tamsulosin Dispo: PT evaluation, PICC line Code status: full code
--- NOTE | 2019-09-23 18:32 | PRG ---
DATE OF SERVICE: 09/23/2019 Mr. Edwards is an 89-year-old gentleman, who presents with severe predominantly axial low back pain. He also has pain limiting movement in lower extremities. He had imaging performed upon arrival, which reveals the presence of what is likely to be osteomyelitis at the L5-S1 segment. There is no evidence for epidural abscess or spinal compression from infection. He does however have a severe multilevel spondylosis. Neurosurgical recommendation is one of Infectious Disease consultation with treatment with IV antibiotics. I do not foresee a need for acute neurosurgical management of his current condition. We will make appropriate followup plans for him in the outpatient setting. Job ID: [id number]
[2019-09-23] MEDS: Vancomycin HCl 1.25 GM in Sodium Chloride 0.9% 250 ML 250 ML IVPB SCH (20:14)
[2019-09-24 05:45] LABS: Hemoglobin 12.6 g/dL (14.0-18.0); Mean Corpuscular HGB CONC 34.4 g/dL (32.0-36.0); Mean Corpuscular Hemoglobin 32.7 pg (27.0-31.0); Mean Corpuscular Volume 95.1 fL (78.0-98.0); Mean Platelet Volume 6.2 fL (7.4-10.4); Platelet Count 92 thou/uL (130-400); RBC Distribution Width 12.8 % (11.5-14.5); Red Blood Cell (RBC) Count 3.86 mill/uL (4.70-6.10); White Blood Cell (WBC) Count 5.4 thou/uL (4.8-10.8)
[2019-09-24 05:46] LABS: Band 6 % (5-11); Eosinophils 8 % (0-10); Lymphocytes 24 % (21-51); MDiff Complete? YES; Monocytes 6 % (0-10); Neutrophil 56 % (42-75); Platelet Morphology Comment Appears Decreased
[2019-09-24] MEDS: Cefepime 2 GM in Sodium Chloride 0.9% 100 ML IVPB SCH ×2 (05:49→18:11)
[2019-09-24] MEDS: Gabapentin 100 MG CAP PO SCH ×3 (09:01→21:03)
[2019-09-24] MEDS: Acetaminophen 325 MG TAB PO PRN (09:06)
--- NOTE | 2019-09-24 13:36 | CT ---
CT THORAX WITH CONTRAST: DATE: 09/24/2019 HISTORY: 89-year-old male status post PICC placement. High resistance encountered at mediastinum.. 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 Left-sided PICC travels from the left arm into the anterior mediastinum, traveling parallel to, but not penetrating, the anterior edge of great vessels. Distal tip of PICC is in the ri ght anterior upper mediastinum. There is no pooling of contrast material that was injected during the PICC procedure, anywhere in the mediastinum, despite the fact that no blood vessel is visible wit hin which the catheter resides. Thoracic aorta is ectatic. The inferior portion of the descending thoracic aorta is very tortuous. Th ere are very small bilateral pleural effusions. No consolidation, pulmonary edema, or pneumothorax. No cardiomegaly or pericardial effusion. No evidence of arterial dissection involving great vessels. No thoracic aortic dissection. No mediastinal hematoma or lymphadenopathy. IMPRESSION: 1) variant anatomy. 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 2) left-sided PICC crosses the midline, with distal tip in the right anterior upper mediastinum. 3) recommend removal of the left-sided PICC, and placement of new right PICC.
[2019-09-24] MEDS ORDERED: Iopamidol 370 76% 100 ML VIAL ONE (13:56)
--- NOTE | 2019-09-24 14:17 | SPC ---
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 TECHNIQUE: Catheter caliber: 5 Syriac Catheter trim length:51 cm Catheter lumen number:single Vein accessed:left basilic Signed, informed consent was obtained. A tourniquet was applied at the proximal aspect of the arm. Th e arm was prepped and draped in the usual sterile fashion. A 25-gauge needle was used to applied buffered lidocaine superficially. The vein was punctured with a 21-gauge micropuncture needle under u ltrasound guidance. A 0.018 inch guidewire was advanced through the micropuncture needle and into the vein. Under fluoroscopic guidance, the guidewire was advanced to the superior vena cava, then int o the right atrium, without any resistance. Patient did not experience any pain other than with the lidocaine. The PICC was flushed and trimmed to the appropriate length. The micropuncture needle was e xchanged over the guidewire for a 5 Syriac peel-away dilator sheath. The dilator was exchanged over the guidewire for the PICC, which was then further advanced under fluoroscopy. The sheath and guidewi re were removed. The PICC could not be advanced beyond the mediastinum just to the right of midline, and there was much resistance. Guidewire was pulled back inside the catheter, but then could not be advanced into the right atrium. No aspiration could be a change with the PICC. The PICC was flushed again and secured in place at the arm. Contrast injection during fluoroscopy demonstrates poo ling of contrast around the tip of the PICC, followed by thin jet of contrast descending vertically into the region of the right atrium. 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 The CT does not demonstrate any extravasation, hematoma, or contrast pooli ng in the mediastinum. The patient tolerated the procedure well. There was no complication. IMPRESSION: 1. 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 2. The left PICC is not in the superior vena cava. It should be removed, and a new contralateral righ t-sided PICC should be placed.
--- NOTE | 2019-09-24 15:15 | SPC ---
Ultrasound-guidedrightupper extremity PICC placement: 09/24/2019 HISTORY: Osteomyelitis, IV antibiotics FINDINGS: Informed consent obtained prior to the procedure. Right antecubital fossa prepped and draped in normal sterile fashion. Skin overlying theright basilicvein anesthetized with 1% buffered lidocaine. With direct sonographic guidance, vascular access is obtained via the right basilicvein and an 0.018in wire was advanced to the cavoatrial junction. Intravascular length is calculated at 37 cm and of the PICC is cut according ly. Needle is removed and replaced with a peel-away sheath. The PICC was advanced over the wire. Wire and peel-away sheath were removed. The tip of the catheter overlies the cavoatrial junction. The port flushes well and the catheter is ready for use. Exposure data: 0.5 minutes of fluoroscopic time 3818 mGy per centimeter squared IMPRESSION: Successful ultrasound guided placement of a rightupper extremity PICC.
--- NOTE | 2019-09-24 18:42 | PDOC.HOSPP ---
- Subjective Encounter Date: 09/24/19 Encounter Time: 17:00 Subjective: The patient is doing well. Back pain is controlled with tylenol. No neuro deficits or bowel or bladder incontinence. He reports some burning in his right leg upon touch Had issues with his PICC line today on the left arm but it was successful on the right arm - Objective Vital Signs & Weight: Vital Signs (12 hours) Temp Pulse Resp BP BP Pulse Ox 09/24/19 15:27 98.1 F 85 16 131/88 95 09/24/19 12:40 97.9 F 76 16 133/90 96 09/24/19 08:00 93 L 09/24/19 07:41 97.7 F 74 16 157/95 H 93 L Weight Weight 187 lb 9.6 oz I&O: 09/23/19 09/24/19 09/25/19 06:59 06:59 06:59 Intake Total 1100 2455 Output Total 1200 1525 Balance -100 930 Result Diagrams: 09/24/19 04:04 09/22/19 12:36 Hospitalist ROS - Review of Systems Constitutional: denies: fever, chills - Medication Medications: Active Medications Generic Name Dose Route Start Last Admin Trade Name Freq PRN Reason Stop Dose Admin Acetaminophen 650 mg 09/22/19 20:28 09/24/19 09:06 Tylenol PO 650 mg Q4H PRN Administration Headache/Fever/Mild Pain (1-3) Gabapentin 200 mg 09/23/19 09:00 09/24/19 15:59 Neurontin PO 200 mg TID ADY Administration Hydralazine HCl 10 mg 09/22/19 20:35 09/23/19 03:43 Apresoline SLOW IVP 10 mg Q4H PRN Administration SBP > 185, DBP > 100 Cefepime HCl 2 gm/ Sodium 100 mls @ 200 mls/hr 09/23/19 06:00 09/24/19 18:11 Chloride IVPB 100 mls 0600,1800 ADY Administration Vancomycin HCl 1.25 gm/ Sodium 250 mls @ 166.667 mls/hr 09/23/19 21:00 20:14 Chloride IVPB 250 mls 2100 ADY Administration - Exam General Appearance: NAD, awake alert Eye: PERRL, anicteric sclera ENT: normocephalic atraumatic, no oropharyngeal lesions Neck: supple, symmetric, no JVD, no thyromegaly Heart: RRR, no murmur, no gallops, no rubs Respiratory: CTAB, no wheezes Gastrointestinal: soft, non-tender, non-distended, normal bowel sounds, no hepatomegaly Extremities: no cyanosis, no clubbing, no edema Skin: normal turgor, no lesions, no rashes Neurological: cranial nerve grossly intact, normal sensation to touch, no focal deficits, no new deficit Hosp A/P - Plan ChestX ray: no acute disease. Small hiatal hernia MRI L spine: osteomyelitis-discitis at L5-S1. Epidural granulation tissue most prominently at L5-S1, L4-5, and lesser degrees at highre levels up to upper L3 level. Severe lumbar spondylosis with multilevel severe degenerative disc disease, severe facet arthrosis, multilevel highgrade central and neural foraminal stenosis. Grade 1 spondylolisthesis at L5-S1 due to extremely severe bilateral facet arthrosis. Severe bilateral stenosis at L5-S1 with chronic compression of the exiting bilateral L5 nerve roots exacerbated by enhancing granulomatous tissue in the neural foramina This is an 89 year old male with past medical history of glaucoma, subdural hematoma in the past, BPH who presented with severe back pain after a fall, found to have osteomyelitis L5-S1 osteomyelitis - noted on MRi L spine above. Blood cultures negative, on vanc and cefepime for 6 weeks per infectious disease. PICC line placed today - will d/c tomorrow after cefepim dose at 6 am Staph coag negative bacteremia - in 1/2 blood culture. Will recheck a second set Macrocytic anemia - Hb 12, B12 and folate normal. Add TSH in normal Glaucoma- continue eye drops BPH - continue tamsulosin Dispo: PT evaluation, PICC line Code status: full code
[2019-09-24 20:23] LABS: Vancomycin, Trough 8.1 ug/mL
[2019-09-24] MEDS: Vancomycin HCl 1.25 GM in Sodium Chloride 0.9% 250 ML 250 ML IVPB SCH (21:03)
[2019-09-25] MEDS: Cefepime 2 GM in Sodium Chloride 0.9% 100 ML IVPB SCH (06:09)
[2019-09-25 06:11] LABS: Hemoglobin 12.9 g/dL (14.0-18.0); Mean Corpuscular HGB CONC 35.1 g/dL (32.0-36.0); Mean Corpuscular Hemoglobin 33.1 pg (27.0-31.0); Mean Corpuscular Volume 94.2 fL (78.0-98.0); Platelet Count 87 thou/uL (130-400); RBC Distribution Width 12.6 % (11.5-14.5); White Blood Cell (WBC) Count 5.5 thou/uL (4.8-10.8)
[2019-09-25 06:35] LABS: Anion Gap 8 mmol/L (10-20); BUN (Urea Nitrogen) 19 mg/dL (8.4-25.7); Calc. Creatinine Clearance 61 mL/min (70-130); Calcium 8.9 mg/dL (7.8-10.44); Carbon Dioxide 28 mmol/L (23-31); Chloride 108 mmol/L (98-107); Estimated GFR-MDRD 71; Glucose 83 mg/dL (83-110); Potassium 3.5 mmol/L (3.5-5.1); Sodium 140 mmol/L (136-145)
[2019-09-25] MEDS ORDERED: Vancomycin HCl 1.25 GM in Sodium Chloride 0.9% 250 ML 250 ML IVPB SCH (09:00)
[2019-09-25] MEDS: Gabapentin 100 MG CAP PO SCH (09:06)
--- NOTE | 2019-09-25 11:46 | DIS ---
DATE OF ADMISSION: 09/22/2019 DATE OF DISCHARGE: 09/25/2019 DISCHARGE DIAGNOSES: Osteomyelitis/diskitis from L5-S1, spinal stenosis and multilevel severe degenerative disk disease, spondylolisthesis at L5-S1 with compression of bilateral L5 nerve roots, anemia, thrombocytopenia BPH, glaucoma. CONSULTATIONS: Infectious Disease with Dr. Inocencio Rosales PROCEDURES: PICC line in the right arm done on 09/24. 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 The patient states he was walking to his kitchen to get some breakfast when his right leg collapsed on him and he fell to the floor. He denied any recent infections or dental procedures, however, he did have a recent subdural hematoma earlier in the year. The patient underwent a lumbar spine MRI in the ER, which showed evidence of osteomyelitis-diskitis at L5-S1. He was admitted for further workup. L5-S1 osteomyelitis, spinal stenosis: The patient had two sets of blood cultures on admission which showed 1/2 positive for coag-negative staph. Repeat blood cultures have been received on the , however, are still pending. The patient was started on IV vancomycin and cefepime. Infectious Disease was consulted and recommended six weeks of IV antibiotics. A PICC line was placed in his left arm initially on the , however, since this site failed, a new one was placed in his right arm. The patient has a followup appointment at 1:[address] Rosales. Further adjustment of antibiotics after repeat blood cultures are resulted can be decided by him. The patient was seen by Physical Therapy and they recommended that the patient have a walker. The patient was discharged with a walker. With regard to pain control, his pain was well controlled with Tylenol. He still has he has some burning radiating down his right leg. If these symptoms have not resolved after completing his course of antibiotics, the patient states he will be interested in a Neurosurgery consult. He was advised to return to the ER if he has bowel or bladder incontinence or worsening neurological deficits. He declined prescription for gabapentin. Anemia: The patient has a hemoglobin and hematocrit of 12.9/36.7 on the day of discharge. Vitamin B12 and folate were normal. The patient should consider outpatient iron studies and a colonoscopy if not done. THrombocytopenia: patient had platelet count of 87. He did not receive heparin. It was recommended he have outpatient follow up. BPH: The patient will continue with outpatient Flomax. Glaucoma: The patient will continue his outpatient eye drops. DISCHARGE PHYSICAL EXAMINATION: VITAL SIGNS: Temperature 98.1, heart rate 85, respiratory rate 16, O2 saturation 95% on room air, blood pressure 131/88. GENERAL: The patient is alert, awake, and oriented x3. CVS: The patient has a holosystolic murmur at the apex of the left heart. There are no rubs or gallops. LUNGS: Clear to auscultation bilaterally. ABDOMEN: Positive bowel sounds, soft, nontender, nondistended. EXTREMITIES: The patient has a negative straight leg test bilaterally. He has 5/5 strength in both of his lower extremities. A Babinski sign is negative. Sensation is intact in both of his extremities. PERTINENT LABORATORY DATA: CBC on 09/25: Hemoglobin 12.9, hematocrit 36.7, white blood cell count 5.5, platelet count of 87. BMP: Unremarkable. LFTs on 09/22: Unremarkable. Troponin I: 0.011. Lactic acid: 1.1. Vitamin B12: 313. Folate: 15.20. PERTINENT IMAGING STUDIES: Chest x-ray on 09/22: No acute cardiopulmonary process. Possible small hiatal hernia. Lumbar spine MRI on 09/22: Severe degenerative disk disease at all levels. Degenerative retrolisthesis of L1 on L2 on L3. 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 Grade 1 anterolisthesis of L5 on S1. There is enhancing circumferential epidural granulation tissue with severe thecal sac stenosis. There is severe bone marrow edema involving the entire L5 and entire S1 vertebral bodies with osteomyelitis/diskitis at L5-S1. There is severe bilateral neural foraminal stenosis with chronic compression of exiting bilateral L5 nerve roots. There is enhancing granulation tissue in the bilateral neural foramina surrounding the L5 nerve roots. DISCHARGE CONDITION: Stable. ACTIVITY: The patient to use a walker while ambulating. DIET: Regular diet. DISCHARGE MEDICATIONS: 1. Cefepime 2 g IV at 6 a.m. and 6 p.m. 2. Vancomycin 1.25 g IV at 9 a.m. and 9 p.m. 3. Tylenol 650 mg p.o. q.4 hours p.r.n. 4. Brimonidine tartrate one drop in each eye b.i.d. 5. Brimonidine tartrate/timolol one drop in each eye daily. 6. Brinzolamide one drop in the right eye b.i.d. 7. Flomax 0.4 mg p.o. daily. DISCHARGE INSTRUCTIONS: The patient is to follow up with Dr. Rosales at 1:30 p.m. this afternoon. He should follow up with his PCP in a week. He should return to the ER with any new neurological deficits or bowel or bladder incontinence. Job ID: [id number] MTDD
[2019-09-25 12:14] VITALS: BP 118/81; TEMP 97.5
== END 2019-09-25 13:00 | disposition home or self-care (01) | DRG 540 ==
LOC: ERS 11:15 → SURG A 17:40
PROVIDERS: ADMIT Internal Medicine; ATTEND Internal Medicine
PROC: 02HV33Z Insertion of Infusion Device into Superior Vena Cava, Percutaneous Approach (ICD-10-PCS; principal; 2019-09-24)
PROC: B518ZZA Fluoroscopy of Superior Vena Cava, Guidance (ICD-10-PCS; 2019-09-24)
DX: M46.27 Osteomyelitis of vertebra, lumbosacral region (principal); R78.81 Bacteremia; M46.47 Discitis, unspecified, lumbosacral region; N40.0 Benign prostatic hyperplasia without lower urinary tract symptoms; M48.061 Spinal stenosis, lumbar region without neurogenic claudication; M51.36 Other intervertebral disc degeneration, lumbar region; H40.9 Unspecified glaucoma; D64.9 Anemia, unspecified; M43.17 Spondylolisthesis, lumbosacral region; B95.7 Other staphylococcus as the cause of diseases classified elsewhere; D69.6 Thrombocytopenia, unspecified; Z79.899 Other long term (current) drug therapy
CPT/HCPCS: 36415; 36569; 71045; 71260; 72148; 80048; 80053; 80202; 81003; 81015; 82607; 82746; 83605; 84484; 85007; 85025; 85027; 85610; 85730; 87040; 87149; 93005; 96365; 96375; A9579; C1751; J0360; J0692; J2270; J3370; J3490; J7050; Q9967

== ENCOUNTER 2019-10-08 12:37 | Emergency (ER) | payer MEDICARE, BC ==
[2019-10-08 14:02] LABS: #Eosinphils 0.4 thou/uL (0.0-0.7); #Lymphocytes 0.6 thou/uL (1.20-3.40); #Monocytes 0.4 thou/uL (0.11-0.59); #Neutrophils 3.3 thou/uL (1.40-6.50); %Basophils 0.1 % (0.0-1.0); %Eosinophils 9.1 % (0.0-10.0); %Lymphocytes 12.9 % (21.0-51.0); %Monocytes 8.5 % (0.0-10.0); %Neutrophils 69.4 % (42.0-75.0); Hemoglobin 11.4 g/dL (14.0-18.0); Mean Corpuscular Volume 94.2 fL (78.0-98.0); Mean Platelet Volume 6.5 fL (7.4-10.4); Platelet Count 65 thou/uL (130-400); RBC Distribution Width 12.5 % (11.5-14.5); Red Blood Cell (RBC) Count 3.44 mill/uL (4.70-6.10); White Blood Cell (WBC) Count 4.8 thou/uL (4.8-10.8)
[2019-10-08 14:23] LABS: ALT (SGPT) 46 U/L (8-55); AST (SGOT) 45 U/L (5-34); Albumin 3.4 g/dL (3.4-4.8); Alkaline Phosphatase 64 U/L (40-110); Anion Gap 11 mmol/L (10-20); BUN (Urea Nitrogen) 19 mg/dL (8.4-25.7); Bilirubin, Total 0.8 mg/dL (0.2-1.2); Calc. Creatinine Clearance 0 mL/min (70-130); Calcium 8.6 mg/dL (7.8-10.44); Carbon Dioxide 24 mmol/L (23-31); Chloride 109 mmol/L (98-107); Estimated GFR-MDRD 61; Globulin 2.5 g/dL (2.4-3.5); Glucose 90 mg/dL (83-110); Potassium 3.8 mmol/L (3.5-5.1); Protein, Total 5.9 g/dL (5.8-8.1); Sodium 140 mmol/L (136-145)
[2019-10-08 14:39] LABS: Bacteria/HPF None Seen HPF (None Seen); Bilirubin Negative (Negative); Blood, Urine 2+ (Negative); Clarity Clear (Clear); Glucose, Urine (Dipstick) Normal (Negative); Leukocyte Negative Leu/uL (Negative); Nitrite Negative (Negative); Protein, Urine (Dipstick) 100 mg/dL (Neg-Trace); Squamous Epithelial 0-3 HPF (0-3); Urobilinogen Normal mg/dL (Less than 2); WBC/HPF 0-3 HPF (0-3)
== END 2019-10-08 13:40 | disposition home or self-care (01) ==
LOC: ERS 12:37
DX: D69.6 Thrombocytopenia, unspecified (principal); Z87.891 Personal history of nicotine dependence; Z79.899 Other long term (current) drug therapy
CPT/HCPCS: 36415; 80053; 81003; 81015; 85025; 87040; 87804; 99284